=== PATIENT | female | born 1965 | race American Indian/Alaskan Native ===

== ENCOUNTER 2022-07-26 16:47 | Inpatient (IN) | payer MEDICAID ==
[2022-07-26] MEDS ORDERED: Melatonin 3 MG Tab PO PRN (16:55)
[2022-07-26] MEDS ORDERED: Albuterol 0.083% 2.5 MG/3 ML Neb Soln NEB PRN (16:55)
[2022-07-26] MEDS ORDERED: Ondansetron 4 MG Tab.DIS PO PRN (16:55)
[2022-07-26] MEDS ORDERED: Ibuprofen 600 MG Tab PO PRN (16:55)
[2022-07-26] MEDS ORDERED: Acetaminophen 325 MG Tab PO PRN (16:55)
[2022-07-26] MEDS ORDERED: Magnesium Hydroxide 400 MG/5 ML Susp 30 ML Cup PO PRN (16:55)
[2022-07-26] MEDS ORDERED: Ondansetron 4 MG/2 ML SDV IV PRN (16:55)
[2022-07-26] MEDS ORDERED: methylPREDNISolone Sodium Succinate 125 MG/2 ML SDV IVPUSH ONE (22:00)
[2022-07-26] MEDS: Albuterol/Ipratropium 3.0-0.5 MG/3 ML Neb Soln NEB SCH (22:35)
[2022-07-27 05:15] LABS: ESTIMATED GFR 100 mL/min (>60)
[2022-07-27] MEDS: Albuterol/Ipratropium 3.0-0.5 MG/3 ML Neb Soln NEB SCH ×4 (07:31→20:19)
[2022-07-27] MEDS: predniSONE 20 MG Tab PO SCH (07:50)
[2022-07-28] MEDS: Albuterol/Ipratropium 3.0-0.5 MG/3 ML Neb Soln NEB SCH (07:19)
[2022-07-28] MEDS: predniSONE 20 MG Tab PO SCH (07:48)
== END 2022-07-28 10:20 | disposition home or self-care (01) | DRG 193 ==
LOC: JP.ICU 16:47
PROVIDERS: ADMIT Internal Medicine; ATTEND Internal Medicine
DX: J10.1 Influenza due to other identified influenza virus with other respiratory manifestations (principal); J96.01 Acute respiratory failure with hypoxia; J44.1 Chronic obstructive pulmonary disease with (acute) exacerbation; F17.200 Nicotine dependence, unspecified, uncomplicated; Z79.51 Long term (current) use of inhaled steroids
CPT/HCPCS: 36415; 80048; 84145; 85027; 86140; 94640; J2930; J7512; J7620